=== PATIENT | male | born 1955 | race Caucasian/White ===

== ENCOUNTER 2022-09-30 10:47 | Outpatient (CLI) | payer BC, SELFPAY ==
[2022-09-30 17:49] LABS: Chloride* 104 mmol/L (96-114)
[2022-09-30 17:50] LABS: Potassium* 5.3 mmol/L (3.6-5.1); Sodium* 139 mmol/L (135-149)
[2022-09-30 17:52] LABS: Cholesterol* 131 mg/dL (90-199)
[2022-09-30 17:53] LABS: Blood Urea Nitrogen* 19 mg/dL (7-30); Calcium* 9.2 mg/dL (8.4-10.6); Carbon Dioxide* 31 mmol/L (20-32); Estimated Glomerular Filt Rate 82 ml/min; Glucose* 98 mg/dL (60-115); Triglycerides* 100 mg/dL (40-149)
[2022-09-30 17:54] LABS: HDL Cholesterol* 38 mg/dL (>=40); LDL Cholesterol Calculated 73 mg/dL (<100)
[2022-09-30 18:26] LABS: PSA Screen* 0.52 ng/mL (0.10-4.00)
== END 2022-09-30 10:48 | disposition home or self-care (01) ==
PROVIDERS: PCP Family Medicine; Visit Provider Family Medicine
DX: E78.5 Hyperlipidemia, unspecified (principal); Z12.5 Encounter for screening for malignant neoplasm of prostate; Z13.1 Encounter for screening for diabetes mellitus
CPT/HCPCS: 80048; 80061; 84153

== ENCOUNTER 2023-08-26 14:50 | Outpatient (CLI) | payer OTHER, SELFPAY | END 2023-08-26 14:51 | disposition home or self-care (01) | PROVIDERS: PCP Family Medicine; Visit Provider Family Medicine | DX: E78.5 Hyperlipidemia, unspecified (principal); Z13.1 Encounter for screening for diabetes mellitus | CPT/HCPCS: 80048; 80061 ==

== ENCOUNTER 2024-09-06 13:39 | Outpatient (CLI) | payer OTHER, SELFPAY | END 2024-09-06 13:40 | disposition home or self-care (01) | PROVIDERS: PCP Family Medicine; Visit Provider Family Medicine | DX: E78.5 Hyperlipidemia, unspecified (principal); Z12.5 Encounter for screening for malignant neoplasm of prostate; Z13.1 Encounter for screening for diabetes mellitus; Z13.0 Encounter for screening for diseases of the blood and blood-forming organs and certain disorders involving the immune mechanism | CPT/HCPCS: 80048; 80061; G0103 ==